=== PATIENT | male | born 1990 | race American Indian/Alaskan Native ===

== ENCOUNTER 2019-01-16 14:51 | Emergency (ER) | payer SELFPAY ==
[2019-01-16 15:24] VITALS: BP 132/76
[2019-01-16] MEDS ORDERED: IBUPROFEN PO ONE (15:25)
--- NOTE | 2019-01-16 15:25 | Emergency Department Report ---
Chief Complaint: Extremity Injury, Lower Stated Complaint: LT KNEE PAIN/SWOLLEN Time Seen by Provider: 01/16/19 15:24 - HPI History of Present Illness: L KNEE PAIN P DANCING FEW DAYS AGO AMBULATORY W PAIN HIV POS ON ANTIVIRALS MSE COMPLETED - Exam Vital Signs: Vital Signs 01/16/19 15:20 Temperature 98.2 F Pulse Rate 113 H Respiratory 16 Rate Blood Pressure 132/76 [Left] O2 Sat by Pulse 98 Oximetry MSE screening note: Focused history and physical exam performed. Due to findings the following was ordered: ED Disposition for MSE Condition: Stable
--- NOTE | 2019-01-16 16:33 | Emergency Department Report ---
ED Lower Extremity HPI - General Chief Complaint: Extremity Injury, Lower Stated Complaint: LT KNEE PAIN/SWOLLEN Time Seen by Provider: 01/16/19 15:24 Source: patient Mode of arrival: Ambulatory Limitations: No Limitations - History of Present Illness Initial Comments: This is a 28-year-old male here report pain and swelling to left knee. He said he twisted his left knee while he was dancing 4 days ago. He said he woke up the next morning and he was having pain and now pain is 7 of 10. He said he can extend his knee but he just cannot bend it became so painful. Denies any fall. Denies any bruising or redness to knee. Denies any fever or chills. Denies any pain distally or proximally. No medication taken. Pain is worse with movements and no alleviating factors. MD Complaint: knee injury (left knee) Onset/Timin -: days(s) Injury: Knee: Left (pain and swelling) Type of Injury: inversion Place: street/outdoors Severity: severe Severity scale (0 -10): 7 Improves With: nothing Worsens With: weight bearing, movement Context: other (dancing) Associated Symptoms: snap/pop sensation, swelling, able to partially bear weight. denies: numbness, tingling Treatments Prior to Arrival: other (none) - Related Data Previous Rx's Medication Instructions Recorded Last Taken Type Acetamin/Codeine 120-12Mg/5 ml 5 ml PO Q8H PRN #120 ml 11/26/14 Unknown Rx [Tylenol/Codeine 120-12 mg/5 ml] Amoxicillin [Amoxicillin TAB] 875 mg PO Q12H #20 tablet 11/26/14 Unknown Rx Ibuprofen [Motrin 800 MG tab] 800 mg PO Q8H PRN #30 tablet 11/26/14 Unknown Rx predniSONE [Deltasone] 50 mg PO QDAY #5 tab 11/26/14 Unknown Rx Acetaminophen/Codeine [Tylenol 1 tab PO Q6H PRN #14 tab 01/16/19 Unknown Rx /Codeine # 3 tab] Ibuprofen [Motrin] 800 mg PO Q8HR PRN #12 tablet 01/16/19 Unknown Rx Allergies Allergy/AdvReac Type Severity Reaction Status Date / Time iodine Allergy Hives Verified 11/26/14 14:00 ED Review of Systems ROS: Stated complaint: LT KNEE PAIN/SWOLLEN Other details as noted in HPI Constitutional: denies: chills, fever Respiratory: denies: cough, shortness of breath, wheezing Cardiovascular: denies: chest pain, palpitations, edema, syncope Gastrointestinal: denies: nausea, vomiting Musculoskeletal: joint swelling, arthralgia. denies: back pain, myalgia Skin: denies: rash Neurological: abnormal gait (limping due to the left knee pain). denies: headache, numbness, paresthesias, vertigo ED Past Medical Hx - Past Medical History Previous Medical History?: Yes Hx HIV: Yes - Surgical History Past Surgical History?: No - Family History Family history: hypertension - Social History Smoking Status: Current Every Day Smoker Substance Use Type: Alcohol - Medications Home Medications: Home Medications Medication Instructions Recorded Confirmed Last Taken Type Acetamin/Codeine 120-12Mg/5 ml 5 ml PO Q8H PRN #120 ml 11/26/14 Unknown Rx [Tylenol/Codeine 120-12 mg/5 ml] Amoxicillin [Amoxicillin TAB] 875 mg PO Q12H #20 tablet 11/26/14 Unknown Rx Ibuprofen [Motrin 800 MG tab] 800 mg PO Q8H PRN #30 tablet 11/26/14 Unknown Rx predniSONE [Deltasone] 50 mg PO QDAY #5 tab 11/26/14 Unknown Rx Acetaminophen/Codeine [Tylenol 1 tab PO Q6H PRN #14 tab 01/16/19 Unknown Rx /Codeine # 3 tab] Ibuprofen [Motrin] 800 mg PO Q8HR PRN #12 tablet 01/16/19 Unknown Rx ED Physical Exam - General Limitations: No Limitations General appearance: alert, in no apparent distress - Head Head exam: Present: atraumatic, normocephalic - Eye Eye exam: Present: normal appearance, PERRL, EOMI Pupils: Present: normal accommodation - ENT ENT exam: Present: normal exam, normal orophraynx - Neck Neck exam: Present: normal inspection, full ROM, other (no C-spine tenderness). Absent: tenderness - Respiratory Respiratory exam: Present: normal lung sounds bilaterally. Absent: respiratory distress, chest wall tenderness - Cardiovascular Cardiovascular Exam: Present: normal rhythm, tachycardia, normal heart sounds - Extremities Exam Extremities exam: Present: normal inspection, tenderness (left knee), normal capillary refill, joint swelling (left knee), other (No cce. + 2 pulses in all extremities, no neurovascular compromise except for left knee pain and pain with flexion. Minor swelling.). Absent: full ROM (limited range of motion to left knee patient extends her knee but pain with flexion.), pedal edema, calf tenderness - Expanded Lower Extremity Exam Left Hip exam: Present: normal inspection, full ROM, pelvic stability. Absent: tenderness, swelling, abrasion, laceration, ecchymosis, deformity, crepidus, dislocation, erythema, external rotation, internal rotation, shortening Upper Leg exam: Present: normal inspection, full ROM. Absent: tenderness, swelling, abrasion, ecchymosis, deformity, crepidus, dislocation, erythema Knee exam: Present: tenderness (left knee), swelling (moderate swelling anterior left knee), effusion, pain w/ pronation/supination, pain/laxity with valgus, pain/laxity with varus, full knee extension. Absent: normal inspection, full ROM (limited range of motion left knee due to pain), abrasion, laceration, ecchymosis, deformity, crepidus, dislocation, erythema Lower Leg exam: Present: normal inspection, full ROM. Absent: tenderness, swelling, abrasion, laceration, ecchymosis, deformity, crepidus, dislocation, erythema, palpable cord, Mini's sign Ankle exam: Present: normal inspection, full ROM. Absent: tenderness, swelling, abrasion, laceration, ecchymosis, deformity, crepidus, dislocation, erythema Foot/Toe exam: Present: normal inspection, full ROM. Absent: tenderness, swelling, abrasion, laceration, ecchymosis, deformity, crepidus, dislocation, erythema, amputation, puncture wound, foreign body, calcaneal tenderness, tenderness at base of 5th metatarsal, nail avulsion, subungual hematoma Neuro vascular tendon exam: Present: no vascular compromise. Absent: pulse deficit, abnormal cap refill, motor deficit, sensory deficit, tendon deficit, extremity cold to touch, pallor, abnormal 2-point discrimination, decreased fine/light touch, foot drop, peroneal nerve deficit, significant pain with passive ROM of distal joint Gait: Positive: antalgic - Back Exam Back exam: Present: normal inspection, full ROM, other (ambulates with limp to left lower extremity due to knee pain). Absent: tenderness, CVA tenderness (R), CVA tenderness (L), muscle spasm, paraspinal tenderness, vertebral tenderness, rash noted - Neurological Exam Neurological exam: Present: alert, oriented X3, abnormal gait (limp into left lower extremity due to pain from injury), reflexes normal. Absent: motor sensory deficit - Psychiatric Psychiatric exam: Present: normal affect, normal mood - Skin Skin exam: Present: warm, dry, intact, normal color. Absent: rash ED Course Vital Signs 01/16/19 01/16/19 15:20 16:16 Temperature 98.2 F Pulse Rate 113 H Respiratory 16 18 Rate Blood Pressure 132/76 [Left] O2 Sat by Pulse 98 Oximetry apical pulse is 92 bpm. - Reevaluation(s) Reevaluation #1: 01/16/19 16:51 Patient received Motrin 800 mg emergency room which he said helped his pain. Please see procedure note for splint details - Orthopedic Splinting/Casting Injury #1 Side: left Lower Extremity Immobilizer: knee immobilizer Other Orthopedic Equipment: crutches Additional Comments: Patient with good color, motion and sensation in temperature to left lower extremity. He has 2+ pedal pulses ED Lower Extremity MDM - Radiology Data Radiology results: report reviewed Three-view x-ray x-ray of left knee shows large joint effusion without any bony abnormality. This was dictated by radiologist and report reviewed by myself. Large joint effusion Findings [facility] [address] [place] [address] XRay Report Signed Patient: JUANIS CEE MR#: [id number] : 1990 Acct:[id number] Age/Sex: 28 / M ADM Date: 01/16/19 Loc: ED Attending Dr: Ordering Physician: PELON COULTER Date of Service: 01/16/19 Procedure(s): XR knee 3V LT Accession Number(s): [id number] cc: PELON COULTER Fluoro Time In Minutes: FINAL REPORT EXAM: XR KNEE 3V LT HISTORY: PAIN AND SWELLING IN LT KNEE TECHNIQUE: Three views left knee. PRIORS: None currently available. FINDINGS: There is no acute fracture. There is no evidence for healing fracture. There is no acute dislocation. Joints in anatomical position. No significant arthrosis. Large joint effusion. There is no cortical destruction to suggest osteomyelitis. There are no suspicious osseous lesions. There are no radiopaque foreign objects. IMPRESSION: No acute osseous findings. Joint effusion. Transcribed By: TYM Dictated By: DARLENE NICHOLAS MD Electronically Authenticated By: DARLENE NICHOLAS MD Signed Date/Time: 01/16/191646 DD/ 44 TD/TT: 01/16/191644 - Medical Decision Making This is a 28-year-old male injured himself 4 days ago while dancing. X-ray of left knee shows a large amount of joint effusion to the left knee and patient has limitation in range of motion to his left knee. He was given Motrin 800 mg emergency room with helped some. Please see procedure note for details. I discussed the patient's x-ray results and diagnosis along with treatment plan and definitely to follow-up with orthopedic doctor in 2-3 days. He voiced un derstanding. Vital signs are stable heart rate is 92 apical and patient is afebrile. Discharge home with prescription for Motrin and Tylenol 3. - Differential Diagnosis FX, Strain, dislocation, sprain, Critical care attestation.: If time is entered above; I have spent that time in minutes in the direct care of this critically ill patient, excluding procedure time. ED Disposition Clinical Impression: Knee effusion, left, Arthralgia of left knee Sprain of left knee Qualifiers: Encounter type: initial encounter Involved ligament of knee: unspecified ligament Qualified Code(s): S83.92XA - Sprain of unspecified site of left knee, initial encounter Disposition: TO HOME OR SELFCARE Is pt being admited?: No Does the pt Need Aspirin: No Condition: Stable Instructions: Knee Effusion (ED), Arthralgia (ED), Knee Immobilizer (ED), Knee Sprain (ED), RICE Therapy (ED) Additional Instructions: Please follow up with orthopedic doctor in 2-3 days. See discharge instructions on knee immobilizer, knee sprain and Rice therapy Take Tylenol 3 for severe pain and Motrin for mild to moderate pain. If he condition worsens, return to the emergency room otherwise follow-up with orthopedic doctor Referrals: YADIEL BAILEY MD [Staff Physician] - 2-3 Days [facility] [Provider Group] - 2-3 Days EVANT RAVI SAENZ MD [Primary Care Provider] - 2-3 Days Forms: Work/School Release Form(ED)
--- NOTE | 2019-01-16 16:47 | XRay Report ---
FINAL REPORT EXAM: XR KNEE 3V LT HISTORY: PAIN AND SWELLING IN LT KNEE TECHNIQUE: Three views left knee. PRIORS: None currently available. FINDINGS: There is no acute fracture. There is no evidence for healing fracture. There is no acute dislocation. Joints in anatomical position. No significant arthrosis. Large joint effusion. There is no cortical destruction to suggest osteomyelitis. There are no suspicious osseous lesions. There are no radiopaque foreign objects. IMPRESSION: No acute osseous findings. Joint effusion.
== END 2019-01-16 17:10 | disposition home or self-care (01) ==
LOC: ED 14:51
DX: S83.92XA Sprain of unspecified site of left knee, initial encounter (principal); M25.462 Effusion, left knee; F17.200 Nicotine dependence, unspecified, uncomplicated; Z91.041 Radiographic dye allergy status; X50.3XXA Overexertion from repetitive movements, initial encounter; Y93.41 Activity, dancing; Y92.410 Unspecified street and highway as the place of occurrence of the external cause; Y99.8 Other external cause status

== ENCOUNTER 2019-10-04 13:24 | Emergency (ER) | payer SELFPAY ==
[2019-10-04 14:10] VITALS: BP 147/92
--- NOTE | 2019-10-04 14:15 | Emergency Department Report ---
ED ENT HPI - General Chief complaint: Sore Throat Stated complaint: EAR/THROAT ACHE Time Seen by Provider: 10/04/19 14:08 Source: patient Mode of arrival: Ambulatory Limitations: No Limitations - History of Present Illness Initial comments: This is a 29-year-old male nontoxic well in appearance with no signs of distress presents to the ED with complaint of sore throat and bilateral earaches. Patient denies any drooling or hoarseness. Patient denies any hearing loss. Denies any mastoid tenderness. Patient denies any other symptoms. Denies any fever, chills, headache, nausea, vomiting, chest pain or SOB. Denies any other complaints. Patient stated allergies to iodine. MD complaint: sore throat, ear pain -: days(s) Location: R ear, L ear, throat Severity: mild Severity scale (0 -10): 8 Quality: aching Consistency: constant Improves with: none Worsens with: none Associated Symptoms: pain with swallowing, sore throat. denies: fever, cough, gum swelling, toothache, tinnitus, hearing loss, discharge from ear, rhinorrhea - Related Data Previous Rx's Medication Instructions Recorded Last Taken Type Acetamin/Codeine 120-12Mg/5 ml 5 ml PO Q8H PRN #120 ml 11/26/14 Unknown Rx [Tylenol/Codeine 120-12 mg/5 ml] Amoxicillin [Amoxicillin TAB] 875 mg PO Q12H #20 tablet 11/26/14 Unknown Rx Ibuprofen [Motrin 800 MG tab] 800 mg PO Q8H PRN #30 tablet 11/26/14 Unknown Rx predniSONE [Deltasone] 50 mg PO QDAY #5 tab 11/26/14 Unknown Rx Acetaminophen/Codeine [Tylenol 1 tab PO Q6H PRN #14 tab 01/16/19 Unknown Rx /Codeine # 3 tab] Ibuprofen [Motrin] 800 mg PO Q8HR PRN #12 tablet 01/16/19 Unknown Rx Amoxicillin [Amoxicillin TAB] 875 mg PO BID #20 tablet 10/04/19 Unknown Rx Ibuprofen [Motrin] 600 mg PO Q8H PRN #20 tablet 10/04/19 Unknown Rx Allergies Allergy/AdvReac Type Severity Reaction Status Date / Time iodine Allergy Hives Verified 11/26/14 14:00 ED Dental HPI - General Chief complaint: Sore Throat Stated complaint: EAR/THROAT ACHE Time Seen by Provider: 10/04/19 14:08 Source: patient Mode of arrival: Ambulatory Limitations: No Limitations - Related Data Previous Rx's Medication Instructions Recorded Last Taken Type Acetamin/Codeine 120-12Mg/5 ml 5 ml PO Q8H PRN #120 ml 11/26/14 Unknown Rx [Tylenol/Codeine 120-12 mg/5 ml] Amoxicillin [Amoxicillin TAB] 875 mg PO Q12H #20 tablet 11/26/14 Unknown Rx Ibuprofen [Motrin 800 MG tab] 800 mg PO Q8H PRN #30 tablet 11/26/14 Unknown Rx predniSONE [Deltasone] 50 mg PO QDAY #5 tab 11/26/14 Unknown Rx Acetaminophen/Codeine [Tylenol 1 tab PO Q6H PRN #14 tab 01/16/19 Unknown Rx /Codeine # 3 tab] Ibuprofen [Motrin] 800 mg PO Q8HR PRN #12 tablet 01/16/19 Unknown Rx Amoxicillin [Amoxicillin TAB] 875 mg PO BID #20 tablet 10/04/19 Unknown Rx Ibuprofen [Motrin] 600 mg PO Q8H PRN #20 tablet 10/04/19 Unknown Rx Allergies Allergy/AdvReac Type Severity Reaction Status Date / Time iodine Allergy Hives Verified 11/26/14 14:00 ED Review of Systems ROS: Stated complaint: EAR/THROAT ACHE Other details as noted in HPI Constitutional: denies: chills, fever Eyes: denies: eye pain, eye discharge, vision change ENT: ear pain, throat pain Respiratory: denies: cough, shortness of breath, wheezing Cardiovascular: denies: chest pain, palpitations Endocrine: no symptoms reported Gastrointestinal: denies: abdominal pain, nausea, diarrhea Genitourinary: denies: urgency, dysuria Musculoskeletal: denies: back pain, joint swelling, arthralgia Skin: denies: rash, lesions Neurological: denies: headache, weakness, paresthesias Psychiatric: denies: anxiety, depression Hematological/Lymphatic: denies: easy bleeding, easy bruising ED Past Medical Hx - Past Medical History Previous Medical History?: Yes Hx HIV: Yes - Surgical History Past Surgical History?: No - Social History Smoking Status: Current Every Day Smoker Substance Use Type: Alcohol - Medications Home Medications: Home Medications Medication Instructions Recorded Confirmed Last Taken Type Acetamin/Codeine 120-12Mg/5 ml 5 ml PO Q8H PRN #120 ml 11/26/14 Unknown Rx [Tylenol/Codeine 120-12 mg/5 ml] Amoxicillin [Amoxicillin TAB] 875 mg PO Q12H #20 tablet 11/26/14 Unknown Rx Ibuprofen [Motrin 800 MG tab] 800 mg PO Q8H PRN #30 tablet 11/26/14 Unknown Rx predniSONE [Deltasone] 50 mg PO QDAY #5 tab 11/26/14 Unknown Rx Acetaminophen/Codeine [Tylenol 1 tab PO Q6H PRN #14 tab 01/16/19 Unknown Rx /Codeine # 3 tab] Ibuprofen [Motrin] 800 mg PO Q8HR PRN #12 tablet 01/16/19 Unknown Rx Amoxicillin [Amoxicillin TAB] 875 mg PO BID #20 tablet 10/04/19 Unknown Rx Ibuprofen [Motrin] 600 mg PO Q8H PRN #20 tablet 10/04/19 Unknown Rx ED Physical Exam - General Limitations: No Limitations General appearance: alert, in no apparent distress - Head Head exam: Present: atraumatic, normocephalic - Expanded ENT Exam Expanded Ear exam: Present: normal external inspection TM/Canal exam: Erythema: Right TM, Bulging: Right TM Mouth exam: Present: normal external inspection. Absent: drooling, trismus, muffled voice Teeth exam: Present: normal inspection Throat exam: Positive: tonsillar erythema, other (uvula midline). Negative: tonsillomegaly, tonsillar exudate, R peritonsillar mass, L peritonsillar mass - Neck Neck exam: Present: normal inspection, full ROM. Absent: tenderness, meningismus, lymphadenopathy - Extremities Exam Extremities exam: Present: full ROM - Back Exam Back exam: Present: full ROM - Neurological Exam Neurological exam: Present: alert, oriented X3, normal gait - Psychiatric Psychiatric exam: Present: normal affect, normal mood - Skin Skin exam: Present: warm, dry, intact, normal color. Absent: rash ED Course - Reevaluation(s) Reevaluation #1: 10/04/19 14:12 Patient is speaking in full sentences with no signs of distress noted. ED Medical Decision Making - Medical Decision Making Patient was instructed to Follow-up with a primary care doctor in 3-5 days or if symptoms worsen and continue return to emergency room as soon as possible. At time of discharge, the patient does not seem toxic or ill in appearance. No acute signs of distress noted. Patient agrees to discharge treatment plan of care. No further questions noted by the patient. Critical care attestation.: If time is entered above; I have spent that time in minutes in the direct care of this critically ill patient, excluding procedure time. ED Disposition Clinical Impression: Otitis media Qualifiers: Otitis media type: unspecified Laterality: right Qualified Code(s): H66.91 - Otitis media, unspecified, right ear Pharyngitis Qualifiers: Pharyngitis/tonsillitis etiology: unspecified etiology Qualified Code(s): J02.9 - Acute pharyngitis, unspecified Disposition: TO HOME OR SELFCARE Is pt being admited?: No Does the pt Need Aspirin: No Condition: Stable Instructions: Otitis Media (ED), Pharyngitis (ED) Additional Instructions: Follow-up with a primary care doctor in 3-5 days or if symptoms worsen and continue return to emergency room as soon as possible. Prescriptions: Amoxicillin [Amoxicillin TAB] 875 mg PO BID #20 tablet Ibuprofen [Motrin] 600 mg PO Q8H PRN #20 tablet PRN Reason: Pain Referrals: PRIMARY CARE, [Referring] - 3-5 Days SONG MORENO MD [Staff Physician] - 3-5 Days [facility] [Outside] - 3-5 Days [facility] [Outside] - 3-5 Days Forms: Work/School Release Form(ED)
== END 2019-10-04 14:45 | disposition home or self-care (01) ==
LOC: ED 13:24
DX: H66.93 Otitis media, unspecified, bilateral (principal); J02.9 Acute pharyngitis, unspecified; F17.200 Nicotine dependence, unspecified, uncomplicated; Z21 Asymptomatic human immunodeficiency virus [HIV] infection status; Z79.899 Other long term (current) drug therapy; Z91.041 Radiographic dye allergy status